=== PATIENT | male | born 1990 | race Caucasian/White ===

== ENCOUNTER 2021-10-20 18:09 | Emergency (ER) | payer BC ==
[2021-10-20 23:29] LABS: HEMOGLOBIN 14.6 gm/dl (14.0-17.5); RED BLOOD COUNT 4.82 M/UL (4.20-5.50); WHITE BLOOD COUNT 14.6 K/UL (4.5-11.0)
[2021-10-20 23:51] LABS: BUN/CREATININE RATIO 15 (0-10)
[2021-10-21 04:44] LABS: RBC (AUTOMATED) 85700 (0-2000); WBC (AUTOMATED) 2539 (0-200)
[2021-10-21 04:45] LABS: MONONUCLEAR CELLS 21.9 (75-100); POLYMORPHONUCLEAR % 78.1 (0-25)
[2021-10-21] MEDS ORDERED: OMNICEF 300 MG300 MG PO (05:14)
== END 2021-10-21 07:30 | disposition home or self-care (01) ==
LOC: ER1 18:09
PROVIDERS: Student in an Organized Health Care Education/Training Program
DX: M25.021 Hemarthrosis, right elbow (principal); M77.9 Enthesopathy, unspecified
CPT/HCPCS: 73060; 73070; 80053; 82945; 83605; 84157; 85025; 85652; 86140; 87070; 87205; 96374; 96375; 99283; J0696; J2060; J2270; J3370